=== PATIENT | male | born 1995 ===

== ENCOUNTER 2024-08-17 09:46 | Outpatient (CLI) | payer SELFPAY ==
--- NOTE | ~2024-08-17 | XR_ITS ---
XR chest 2V Ordering provider: Nicole Reynaga Aubrie, [employer] History: 29 years Male with . Nonspecific reaction to cell mediated immunity measurement o . Comparison: None. FINDINGS: MEDIASTINUM: The cardiac silhouette is not enlarged. LUNGS: No infiltrates, effusions or pneumothorax. OTHER: No free air under the diaphragm. IMPRESSION: No acute cardiopulmonary pathology. Reviewed, dictated and finalized at location A. [employer] [employer]
== END 2024-08-17 09:47 | disposition home or self-care (01) ==
PROVIDERS: PCP Nurse Practitioner Psychiatric/Mental Health; Visit Provider Nurse Practitioner Psychiatric/Mental Health
DX: R76.12 Nonspecific reaction to cell mediated immunity measurement of gamma interferon antigen response without active tuberculosis (principal)
CPT/HCPCS: 71046